=== PATIENT | female | born 1970 | race Caucasian/White ===

== ENCOUNTER 2023-01-15 16:16 | Emergency (ER) | payer OTHER, SELFPAY ==
[2023-01-15 16:46] VITALS: BP 124/79; PULSE 105; RESP 18; TEMP 37.1; O2SAT 93; BMI 35.2
--- NOTE | 2023-01-15 16:47 | ED_ITS ---
HPI - General Adult General Chief complaint: Wound/Laceration Stated complaint: attacked by her cat lacs on arms/legs Time Seen by Provider: 01/15/23 18:03 Source: patient Mode of arrival: ambulatory Limitations: no limitations History of Present Illness HPI narrative: 52 yo female with history of asthma right handed here with complaints of cat bites/scratches to bilateral lower legs, left forearm. Patient reports she was watching a friends dog and holding him in her right arm. Her cat and the dog got into a fight and her cat bit/scratched her lower legs and left forearm. Her cat is UTD with vaccinations. This is an indoor cat. Patient UTD with her vaccinations. Patient concerned d/t previous bacteremia secondary to cat bite. Related Data Previous Rx's Medication Instructions Recorded amoxicillin 875 mg-potassium 1 tab PO BID #14 tabs 01/15/23 clavulanate 125 mg tablet Allergies Allergy/AdvReac Type Severity Reaction Status Date / Time Sulfa (Sulfonamide Allergy Unknown ANAPHYLAXIS Unverified 05/24/20 16:26 Antibiotics) [SULFA(SULFONAMIDE ANTIBIOTICS)] Review of Systems Review of Systems: Yes all other systems are reviewed and are negative Constitutional: Constitutional: Reports no additional constitutional complaints, Denies body ache(s), Denies chills, Denies fever(s), Denies headache(s) and Denies weakness Eyes: Eyes: Reports no additional eye complaints and Denies change in vision ENT: Reports system reviewed and no additional complaints, except as do cumented, Denies dizziness, Denies headache(s), Denies nasal congestion, Denies nasal discharge and Denies neck pain Cardiovascular: Cardiovascular: Reports no additional cardiovascular complaints, Denies chest pain, Denies leg edema and Denies dyspnea Respiratory: Respiratory: Reports no additional respiratory complaints, Denies cough and Denies dyspnea Gastrointestinal: Gastrointestinal: Reports no additional gastrointestinal complaints, Denies abdominal pain, Denies diarrhea, Denies nausea and Denies vomiting Genitourinary: Genitourinary: Reports no additional female genitourinary complaints and Denies urinary incontinence Musculoskeletal: Musculoskeletal: Reports no additional musculoskeletal complaints, Denies back pain, Denies arthralgias, Denies joint swelling, Denies neck pain, Denies numbness and Denies tingling Integumentary/Breasts: Skin/Breast: Reports system reviewed and no additional complaints, except as docu, Denies rash and Reports wounds Neurologic: Reports system reviewed and no additional complaints, except as documented, Denies dizziness, Denies headache(s), Denies numbness, Denies tingling and Denies weakness PMFSH Past Medical History Attestation statement: The following information was validated with the patient. Source: old records reviewed and nursing notes reviewed Social History Social History Advance Directives: No Advance Directives Information Provided: No Physical Exam ED Vital Signs: Vital Signs - 24 hr 01/15/23 16:46 Temperature 98.7 F Pulse Rate 105 H Respiratory Rate 18 Blood Pressure 124/79 Pulse Oximetry 93 Oxygen Delivery Method Room Air BMI result Body Mass Index 35.2 Extrem Other: Patient with multiple abrasions to the lower extremities as well as several puncture wounds over both calfs. Patient also has multiple linear abrasions over the left volar forearm and abrasions with several puncture wounds noted over the left dorsal forearm. There is some slight swelling and ecchymosis noted over the dorsal forearm. I do not appreciate any redness, warmth, drainage. Patient with full range of motion of the left elbow, left wrist and left hand with no difficulty. Course Course Course Narrative: This is an RME: Additional HPI, ROS, PE not included below will be deferred to primary provider. 52 year old female with PMH of unspecified infection after a cat attack presents after her cat attacked her bilateral legs and left arm. Patient reports her cat was in a fight with a dog and went after her when she went in to break it up. Patient reports when she's been attacked by a cat in the past, she became septic. She is concerned this may happen again and requests antibiotics. Patient reports cat is UTD on vaccinations. PE: Several abrasions and puncture wounds to bilateral lower legs and left arm Plan: wound care Medical Decision Making Medical Decision Making MDM Narrative: 52-year-old female right-hand dominant with a history of asthma who presents to the ER with complaints of cat bites and scratches to both lower extremities and left forearm which occurred earlier today from her own cat who is up-to-date with rabies vaccinations. Most of these abrasions are superficial and noted over the lower leg since left forearm. There are several puncture wounds noted over the bilateral posterior calf and over the dorsal aspect of the left forearm. Patient reports she cleaned the site prior to arrival with alcohol. No signs or symptoms of infection Will start patient on prophylactic oral antibiotics. Reviewed worrisome signs and symptoms of when to return to the emergency room. Comfortable plan for discharge home. Differential Diagnosis Differential Diagnoses: The differential diagnosis associated with the presentation includes cat bite Discharge Plan Discharge Clinical Impression: Cat bite, Abrasion Patient Disposition: Home, Self-Care Instructions: Animal Bite (ED) Additional Instructions: Take the antibiotics as prescribed Keep the wounds clean and dry Monitor for signs of infection such as redness, drainage, increasing swelling, fever greater than 100.4. Please return for any worsening symptoms. Prescriptions: New amoxicillin-pot clavulanate 875-125 mg tablet 1 tab PO BID Qty: 14 0RF Referrals: Rachel Garcia PA [Primary Care Provider] - 1 week
== END 2023-01-15 18:44 | disposition home or self-care (01) ==
PROVIDERS: Emergency Provider Student in an Organized Health Care Education/Training Program; PCP Physician Assistant Medical
DX: S80.811A Abrasion, right lower leg, initial encounter (principal); S80.812A Abrasion, left lower leg, initial encounter; W55.03XA Scratched by cat, initial encounter; Y93.9 Activity, unspecified; Y92.9 Unspecified place or not applicable; Y99.9 Unspecified external cause status
CPT/HCPCS: 99282; 99283